=== PATIENT | male | born 1945 | race Caucasian/White ===

== ENCOUNTER → 2020-05-09 | Outpatient (CLI) | payer MEDICARE | LOC: NM 12:33 | DX: I48.91 Unspecified atrial fibrillation (principal); I10 Essential (primary) hypertension; R94.39 Abnormal result of other cardiovascular function study | CPT/HCPCS: 78452; 93017; A9502; J2785 ==

== ENCOUNTER → 2020-10-15 | Outpatient (CLI) | payer MEDICARE | LOC: HEART 5 09:33 | DX: I48.91 Unspecified atrial fibrillation (principal); I25.10 Atherosclerotic heart disease of native coronary artery without angina pectoris; I08.1 Rheumatic disorders of both mitral and tricuspid valves | CPT/HCPCS: 93306 ==

== ENCOUNTER → 2021-01-15 | Outpatient (CLI) | payer MEDICARE | LOC: HEART 5 12:51 | DX: I50.22 Chronic systolic (congestive) heart failure (principal) | CPT/HCPCS: 78472; A9560 ==

== ENCOUNTER → 2021-03-01 | Outpatient (CLI) | payer MEDICARE ==
[2021-03-01 11:48] LABS: HEMOGLOBIN 12.9 gm/dl (14.0-17.5); RED BLOOD COUNT 4.56 M/UL (4.20-5.50); WHITE BLOOD COUNT 6.4 K/UL (4.5-11.0)
[2021-03-01 12:29] LABS: BUN/CREATININE RATIO 13 (0-10)
== END ==
LOC: LAB 10:51
PROVIDERS: Internal Medicine Cardiovascular Disease
DX: I25.5 Ischemic cardiomyopathy (principal); I48.91 Unspecified atrial fibrillation; I50.22 Chronic systolic (congestive) heart failure; I25.10 Atherosclerotic heart disease of native coronary artery without angina pectoris
CPT/HCPCS: 36415; 71046; 80048; 85025

== ENCOUNTER 2021-03-26 07:09 | Outpatient (CLI) | payer MEDICARE ==
[~2021-03-26] VITALS: Ht 180.3 cm; Wt 91.8 kg
[2021-03-26] MEDS ORDERED: ATENOLOL50 MG PO (08:03)
[2021-03-26] MEDS ORDERED: ATORVASTATIN CA40 MG PO (08:03)
[2021-03-26] MEDS ORDERED: ELIQUIS5 MG PO (08:03)
[2021-03-26] MEDS ORDERED: ASPIRIN CHEWABL81 MG PO (08:03)
[2021-03-26] MEDS ORDERED: HYDROCHLOROTH12.5 MG PO (08:04)
[2021-03-26] MEDS ORDERED: VASOTEC10 MG PO (08:04)
[2021-03-26] MEDS ORDERED: CLINDAMYCIN HC300 MG PO (15:58)
[2021-03-26] MEDS ORDERED: LEVOFLOXACIN500 MG PO (15:58)
[2021-03-26] MEDS ORDERED: HYDROCODON-ACE1 EAC4 PO (15:58)
== END 2021-03-27 11:29 | disposition home or self-care (01) ==
LOC: CATH 07:09 → PROG CARE 13:42 → CATH 03-27 11:29
DX: I11.0 Hypertensive heart disease with heart failure (principal); I50.22 Chronic systolic (congestive) heart failure; I25.5 Ischemic cardiomyopathy; I25.10 Atherosclerotic heart disease of native coronary artery without angina pectoris; I25.2 Old myocardial infarction; I48.21 Permanent atrial fibrillation; E78.5 Hyperlipidemia, unspecified; F17.210 Nicotine dependence, cigarettes, uncomplicated; I48.92 Unspecified atrial flutter; Z85.118 Personal history of other malignant neoplasm of bronchus and lung; Z90.49 Acquired absence of other specified parts of digestive tract; Z96.641 Presence of right artificial hip joint; Z95.5 Presence of coronary angioplasty implant and graft; Z90.2 Acquired absence of lung [part of]; Z79.01 Long term (current) use of anticoagulants; Z79.82 Long term (current) use of aspirin; Z20.822 Contact with and (suspected) exposure to COVID-19
CPT/HCPCS: 33249; 71045; 82962; 99152; 99153; C1722; C1895; J1644; J2250; J3010; J3370; J7040; J7050; J7070; Q9965